=== PATIENT | female | born 1990 | race Caucasian/White ===

== ENCOUNTER 2019-05-22 01:49 | Emergency (ER) | payer OTHER ==
[2019-05-22] MEDS: IPRATROPIUM (NEB) 0.5 MG/2.5 ML AMP NEB (02:55)
[2019-05-22] MEDS: ALBUTEROL 0.083% (NEB) 2.5 MG/3 ML AMP NEB (02:55)
[2019-05-22] MEDS ORDERED: KETOROLAC 30 MG INJ IV (03:52)
[2019-05-22] MEDS ORDERED: ONDANSETRON 4 MG INJ IV (03:52)
== END 2019-05-22 04:25 | disposition home or self-care (01) ==
LOC: FTE 04:25
DX: O26.892 Other specified pregnancy related conditions, second trimester (principal); R05 Cough; Z3A.20 20 weeks gestation of pregnancy
CPT/HCPCS: 94664; 99283-25